=== PATIENT | female | born 1940 | race Caucasian/White ===

== ENCOUNTER → 2016-04-08 | Outpatient (CLI) | payer OTHER, BC ==
[~2016-04-08] MED LIST: ASPIRIN325 PO; CIPRO500 MG PO; DILAUDID 2 MG TA2 MG PO; DILAUDID 4 MG TA4 M1 PO; DOXYCYCLINE 10100 MG PO; FENTANYL 1100 MCG/HR TRANSDERM; FENTANYL PA25 MCG/HR TRANSDERM; FENTANYL PATCH75 MCG TRANSDERM; GENTAMICIN 0.1%15 G2 TOP; HYOSCYAMINE0.125 M1 SL; MERREM1 GM IV; MIRALAX17 GM PO; OMEPRAZOLE40 MG PO; PACERONE 200 M200 M1 PO; PROTONIX40 M1 PO; RESTORIL15 MG PO; SANTYL OINTMENT30 G1 TP; TEMAZEPAM15 MG PO; TENORMIN25 MG PO; TYLENOL325 MG PO; VITAMIN D 5050000 I1 PO; ZANAFLEX4 MG PO; ZOFRAN ODT4 MG BUCCAL
== END ==
LOC: HYPER 08:00
DX: L89.613 Pressure ulcer of right heel, stage 3 (principal); M86.371 Chronic multifocal osteomyelitis, right ankle and foot; G62.9 Polyneuropathy, unspecified; Z90.710 Acquired absence of both cervix and uterus; Z95.0 Presence of cardiac pacemaker; Z87.891 Personal history of nicotine dependence

== ENCOUNTER → 2016-06-24 | Outpatient (CLI) | payer OTHER, BC | LOC: HYPER 08:14 | DX: L89.613 Pressure ulcer of right heel, stage 3 (principal); L89.623 Pressure ulcer of left heel, stage 3; M86.371 Chronic multifocal osteomyelitis, right ankle and foot; G60.9 Hereditary and idiopathic neuropathy, unspecified; I73.9 Peripheral vascular disease, unspecified; I87.2 Venous insufficiency (chronic) (peripheral); I89.0 Lymphedema, not elsewhere classified; Z87.891 Personal history of nicotine dependence ==

== ENCOUNTER → 2016-07-22 | Outpatient (CLI) | payer OTHER, BC | LOC: HYPER 08:15 | DX: L89.613 Pressure ulcer of right heel, stage 3 (principal); L89.623 Pressure ulcer of left heel, stage 3; I87.2 Venous insufficiency (chronic) (peripheral); M86.371 Chronic multifocal osteomyelitis, right ankle and foot; G60.9 Hereditary and idiopathic neuropathy, unspecified; R60.0 Localized edema; I73.9 Peripheral vascular disease, unspecified; I89.0 Lymphedema, not elsewhere classified; Z95.0 Presence of cardiac pacemaker; Z87.891 Personal history of nicotine dependence ==

== ENCOUNTER → 2016-08-19 | Outpatient (CLI) | payer OTHER, BC | LOC: HYPER 10:11 | DX: L89.613 Pressure ulcer of right heel, stage 3 (principal); L89.623 Pressure ulcer of left heel, stage 3; I70.235 Atherosclerosis of native arteries of right leg with ulceration of other part of foot; I70.245 Atherosclerosis of native arteries of left leg with ulceration of other part of foot; I87.2 Venous insufficiency (chronic) (peripheral); M86.371 Chronic multifocal osteomyelitis, right ankle and foot; I73.9 Peripheral vascular disease, unspecified; R60.0 Localized edema; G60.9 Hereditary and idiopathic neuropathy, unspecified; Z87.891 Personal history of nicotine dependence ==

== ENCOUNTER → 2016-09-14 | Outpatient (CLI) | payer OTHER, BC | LOC: HYPER 07:00 | DX: I70.244 Atherosclerosis of native arteries of left leg with ulceration of heel and midfoot (principal); L89.623 Pressure ulcer of left heel, stage 3; I70.234 Atherosclerosis of native arteries of right leg with ulceration of heel and midfoot; L89.613 Pressure ulcer of right heel, stage 3; M86.371 Chronic multifocal osteomyelitis, right ankle and foot; G60.9 Hereditary and idiopathic neuropathy, unspecified; I73.9 Peripheral vascular disease, unspecified; I87.2 Venous insufficiency (chronic) (peripheral); Z90.710 Acquired absence of both cervix and uterus; Z87.891 Personal history of nicotine dependence ==

== ENCOUNTER → 2016-10-10 | Outpatient (CLI) | payer OTHER, BC | LOC: HYPER 06:57 | DX: I70.245 Atherosclerosis of native arteries of left leg with ulceration of other part of foot (principal); L89.893 Pressure ulcer of other site, stage 3; I70.235 Atherosclerosis of native arteries of right leg with ulceration of other part of foot; L89.613 Pressure ulcer of right heel, stage 3; L89.623 Pressure ulcer of left heel, stage 3; M86.371 Chronic multifocal osteomyelitis, right ankle and foot; G60.9 Hereditary and idiopathic neuropathy, unspecified; I73.9 Peripheral vascular disease, unspecified; I87.2 Venous insufficiency (chronic) (peripheral); I89.0 Lymphedema, not elsewhere classified; G89.29 Other chronic pain; R26.9 Unspecified abnormalities of gait and mobility; Z95.0 Presence of cardiac pacemaker; Z87.891 Personal history of nicotine dependence; Z90.710 Acquired absence of both cervix and uterus ==

== ENCOUNTER → 2016-11-07 | Outpatient (CLI) | payer OTHER, BC | LOC: HYPER 07:08 | DX: I87.2 Venous insufficiency (chronic) (peripheral) (principal); L97.411 Non-pressure chronic ulcer of right heel and midfoot limited to breakdown of skin; L97.521 Non-pressure chronic ulcer of other part of left foot limited to breakdown of skin; L89.613 Pressure ulcer of right heel, stage 3; M86.371 Chronic multifocal osteomyelitis, right ankle and foot; G60.9 Hereditary and idiopathic neuropathy, unspecified; R60.0 Localized edema; I73.9 Peripheral vascular disease, unspecified; I89.0 Lymphedema, not elsewhere classified; I70.235 Atherosclerosis of native arteries of right leg with ulceration of other part of foot; I70.245 Atherosclerosis of native arteries of left leg with ulceration of other part of foot; Z90.710 Acquired absence of both cervix and uterus; Z87.891 Personal history of nicotine dependence ==

== ENCOUNTER → 2016-12-02 | Outpatient (CLI) | payer OTHER, BC | LOC: HYPER 08:14 | DX: I70.235 Atherosclerosis of native arteries of right leg with ulceration of other part of foot (principal); L89.613 Pressure ulcer of right heel, stage 3; I70.245 Atherosclerosis of native arteries of left leg with ulceration of other part of foot; L89.623 Pressure ulcer of left heel, stage 3; M86.371 Chronic multifocal osteomyelitis, right ankle and foot; G60.9 Hereditary and idiopathic neuropathy, unspecified; I73.9 Peripheral vascular disease, unspecified; I87.2 Venous insufficiency (chronic) (peripheral); I89.0 Lymphedema, not elsewhere classified; Z87.891 Personal history of nicotine dependence ==

== ENCOUNTER → 2016-12-14 | Outpatient (CLI) | payer OTHER, BC | LOC: HYPER 07:03 | DX: I87.2 Venous insufficiency (chronic) (peripheral) (principal); I70.235 Atherosclerosis of native arteries of right leg with ulceration of other part of foot; L97.411 Non-pressure chronic ulcer of right heel and midfoot limited to breakdown of skin; L97.521 Non-pressure chronic ulcer of other part of left foot limited to breakdown of skin; L89.613 Pressure ulcer of right heel, stage 3; M86.371 Chronic multifocal osteomyelitis, right ankle and foot; G60.9 Hereditary and idiopathic neuropathy, unspecified; R60.0 Localized edema; I73.9 Peripheral vascular disease, unspecified; I89.0 Lymphedema, not elsewhere classified; Z90.710 Acquired absence of both cervix and uterus; Z95.0 Presence of cardiac pacemaker; Z87.891 Personal history of nicotine dependence ==

== ENCOUNTER → 2016-12-28 | Outpatient (CLI) | payer OTHER, BC | LOC: HYPER 07:03 | DX: L89.614 Pressure ulcer of right heel, stage 4 (principal); L89.893 Pressure ulcer of other site, stage 3; M86.371 Chronic multifocal osteomyelitis, right ankle and foot; G62.9 Polyneuropathy, unspecified; I87.2 Venous insufficiency (chronic) (peripheral); I89.0 Lymphedema, not elsewhere classified; I70.245 Atherosclerosis of native arteries of left leg with ulceration of other part of foot; I70.235 Atherosclerosis of native arteries of right leg with ulceration of other part of foot; L97.521 Non-pressure chronic ulcer of other part of left foot limited to breakdown of skin; L97.511 Non-pressure chronic ulcer of other part of right foot limited to breakdown of skin; Z90.710 Acquired absence of both cervix and uterus; Z95.0 Presence of cardiac pacemaker; Z87.891 Personal history of nicotine dependence ==

== ENCOUNTER → 2017-01-25 | Outpatient (CLI) | payer OTHER, BC | LOC: HYPER 01-16 06:59 | DX: I70.235 Atherosclerosis of native arteries of right leg with ulceration of other part of foot (principal); L89.613 Pressure ulcer of right heel, stage 3; I70.245 Atherosclerosis of native arteries of left leg with ulceration of other part of foot; L89.623 Pressure ulcer of left heel, stage 3; M86.371 Chronic multifocal osteomyelitis, right ankle and foot; G60.9 Hereditary and idiopathic neuropathy, unspecified; I89.0 Lymphedema, not elsewhere classified; Z87.891 Personal history of nicotine dependence ==

== ENCOUNTER → 2017-02-21 | Outpatient (CLI) | payer OTHER, BC | LOC: HYPER 07:07 | DX: I70.245 Atherosclerosis of native arteries of left leg with ulceration of other part of foot (principal); I70.235 Atherosclerosis of native arteries of right leg with ulceration of other part of foot; L89.613 Pressure ulcer of right heel, stage 3; L89.623 Pressure ulcer of left heel, stage 3; I87.2 Venous insufficiency (chronic) (peripheral); I89.0 Lymphedema, not elsewhere classified; G89.29 Other chronic pain; M86.371 Chronic multifocal osteomyelitis, right ankle and foot; G60.9 Hereditary and idiopathic neuropathy, unspecified; Z87.891 Personal history of nicotine dependence; Z90.710 Acquired absence of both cervix and uterus; Z95.0 Presence of cardiac pacemaker ==

== ENCOUNTER 2017-03-16 16:07 | Inpatient (IN) | payer OTHER, BC ==
[2017-03-16] VITALS (12 sets, daily range): BP systolic 96–120; BP diastolic 34–62
[~2017-03-16] VITALS: Ht 162.6 cm; Wt 56.7 kg
--- NOTE | ~2017-03-16 | S ---
[facility] [place] [address] SURGICAL PATH RPT PROCEDURE Name: DENISE LEMA Room #: 412-P ADM IN M.R.#: [id number] Admission: 03/16/17 Date of : 40 Discharge: Report #: [id number] Path Case #: [id number] PATHOLOGY REPORT COLLECTION DATE: 03/21/2017 RECEIVED DATE: 03/21/2017 SUBMITTING PHYS: Dr. Steven Leo OTHER PHYS: Dr. Gui Roe SPECIMEN(S) RECEIVED: A.Right below knee amputation * * * * * * * * * * * * FINAL DIAGNOSIS: Right below knee amputation: - Deep penetrating ulceration with necrotic acute inflammatory exudate with gangrenous necrosis and with acute inflammation extending into the underlying fibroadipose tissue and bone with acute and chronic osteomyelitis. - The vessels reveal atherosclerotic calcified narrowing with almost total occlusion. - The tissue submitted as soft tissue and bone margins appears to be viable. (SHA:anant; 03/23/2017) PATHOLOGIST: Albert Otto M.D. REPORT ELECTRONICALLY SIGNED BY: Albert Otto M.D. DATE/TIME: 03/23/2017 11:27 * * * * * * * * * * * * GROSS PATHOLOGY: Received wrapped in red biohazard bag, labeled "Denise Lema and right BKA", is a below the knee amputation of right leg 24 cm from the proximal skin resection margin to heel 23 cm from heel to tip of big toe. Extending above the soft tissue resection margin is a portion of tibia 5.0 cm in length by 3.5 x 2.2 cm and fibula 2.0 cm in length by 1.5 x 0.6 cm. The skin, underlying soft tissue and the bone resection margin grossly appear viable. The skin is smith-white diffusely edematous. There are several ulcers the largest on the plantar surface of heel 4.5 x 3.5 cm. The ulcer bed is necrotic guidry-white with possible extension to the underling bone. All the digits are present with a guidry-white crusted nail. The vasculature shows a patent lumen with possible minimal intimal thickening. No venous thrombi identified. Metal Handler sections submitted as follows: [address] [place] [address] SURGICAL PATH RPT PROCEDURE Name: DENISE LEMA Room #: [facility]- ADM IN M.R.#: [id number] Admission: 03/16/17 Date of : 40 Discharge: Report #: [id number] Path Case #: [id number] A1 soft tissue and vascular resection margin A2 bone resection margin (fibula and tibia) after decalcification A3 ulcer to underlying bone after decalcification A4 vasculature (SWS; 03/21/2017) CLINICAL HISTORY: Gangrenous right foot INITIAL CPT CODE(S): A; 38617, 77601 Professional services performed by [facility] at [facility] [address] [place] [address] Technical services performed by [facility] at [address] [place] [address] [address], [place] [address]. [facility] [address] [place] [address] PHONE: [phone] DIRECTOR: Pérez Guerin M.D. * * * END OF REPORT * * *
--- NOTE | ~2017-03-16 | H ---
[facility] [place] [address] HISTORY AND PHYSICAL Name: YADIRA LEMA Room #: 412-P [facility] IN M.R.#: [id number] Admission: 03/16/17 Attend Phys: Gui Sullivan MD Discharge: 03/29/17 Date of : 40 Report #: [id number] THIS REPORT FOR: //name// CC: Gui Xiaoricks DATE OF SERVICE: 03/16/2017 CHIEF COMPLAINT: Generalized weakness, right heel pain. HISTORY OF PRESENT ILLNESS: The patient is a 76-year-old female with chronic osteomyelitis of the right foot, involving heel, who came to the Emergency Room after she sustained a fall at home. The patient denies loss of consciousness. She states that she was just weak. The patient was found to have right distal fifth metacarpal fracture. Splint was applied in the Emergency Room. Further evaluation revealed deep right heel ulcer. The patient is followed by wound care clinic. Her white count is 30,000, and creatinine was 4.2. The patient is also hypotensive. She denies dizziness, chest pains, shortness of breath, or other symptoms. She reports right foot pain, and she is asking for pain medications. In the Emergency Room, the patient is started on vancomycin and Zosyn. I cannot clarify if the patient received any fluids or not. She is admitted to the floor. PAST MEDICAL HISTORY: 1. Chronic right heel ulcer and osteomyelitis, treated for the same problem here in October 2015. 2. Status post pacemaker placement. 3. Chronic pain syndrome, narcotic dependent. 4. Iron deficiency anemia. 5. Pulmonary hypertension, pulmonary artery pressure 70 based on echo in November of 2015. Normal left ventricular ejection fraction. 6. Peripheral neuropathy. 7. Gastroparesis. 8. GERD, status post Rachele fundoplication. HOME MEDICATIONS: Reviewed and documented in the patient's chart. FAMILY HISTORY: Reviewed and not pertinent to the patient's current condition. SOCIAL HISTORY: The patient lives in the assisted living facility. She does not smoke cigarettes and does not drink alcohol. [facility] [address] [place] [address] HISTORY AND PHYSICAL Name: YADIRA LEMA Room #: 412-P [facility] IN ..#: [id number] Admission: 03/16/17 Attend Phys: Gui Sullivan MD Discharge: 03/29/17 Date of : 40 Report #: [id number] REVIEW OF SYSTEMS: As above in HPI section, all others negative. PHYSICAL EXAMINATION: GENERAL: The patient is an elderly female, who is in mild distress due to ongoing pain. VITAL SIGNS: Blood pressure is 97/34, heart rate is 73, respiration is 16, and temperature is 98.4. HEENT: Pupils are equal. Eye movements are normal. Sclerae are anicteric. NECK: Supple. Oral mucosa is somewhat dry. Thyromegaly is not palpated. RESPIRATORY: Chest moves symmetrically with breathing. LUNGS: Clear to auscultation bilaterally. CARDIOVASCULAR: The patient has regular rhythm and rate. She has no murmurs, gallops or rubs. GASTROINTESTINAL: Abdomen is soft, nontender, and nondistended. Bowel sounds are present. Hepatomegaly or splenomegaly is not palpated. MUSCULOSKELETAL: The patient has mild edema on the right extremity. There is a large ulcer on the right foot, involving heel. The ulcer is fairly deep. The patient has bloody drainage from the ulcer. LABORATORY DATA: On basic metabolic profile, creatinine is 4.2, from 1.0 about a year ago. Electrolytes are normal. BUN is 79. Glucose is 142. AST is 45. Other liver function tests are normal. CBC: White count is 30,000, with 1% bands, and 90% segments. Hemoglobin is 7.4, which is lower than the patient's baseline. MCV is low at 71.6. Platelets are 320. Right foot x-ray is consistent with possible calcaneus osteomyelitis. Right hand x-ray shows distal fifth metacarpal fracture. Urinalysis is unremarkable. Blood culture and wound cultures obtained. ASSESSMENT AND PLAN: 1. Chronic right heel osteomyelitis, involving calcaneal bone. The patient already started on antibiotics in the Emergency Room. She received Zosyn and vancomycin, which will be continued. Wound care and Infectious disease specialist are already consulted. Input is very much appreciated. 2. Severe sepsis due to above. I cannot confirm if the patient received any IV fluids so far. We will treat the patient with a normal saline bolus, followed by continuous infusion. The patient will be transferred to the Intensive Care Unit, as her blood pressure currently is low at 97/34. IV pressors will be used if necessary. 3. Acute renal failure, with creatinine of 4.2 due to sepsis and septic shock. Avoid nephrotoxic agents. Continue IV fluids and reassess. Monitor I's and O's. Nephrology consultation. 4. Iron deficiency anemia, with low MCV. Hemoglobin is 7.4, from chronic baseline of between 8 and 9. Iron supplementation. Monitor hemoglobin. [address] [address] HISTORY AND PHYSICAL Name: YADIRA LEAM Room #: 412-P [facility] IN M.R.#: [id number] Admission: 03/16/17 Attend Phys: Gui Sullivan MD Discharge: 03/29/17 Date of : 40 Report #: [id number] 5. Deep venous thrombosis and gastrointestinal prophylaxis. Lovenox and PPI respectively. <ELECTRONICALLY SIGNED> By: Gui Sullivan MD 04/02/17 1105 1950 2057 Gui Sullivan MD /nt
--- NOTE | ~2017-03-16 | HC ---
[facility] [place] [address] CONSULTATION Name: YADIRA LEMA Room #: 412-P ADM IN M.R.#: [id number] Admission: 03/16/17 Attend Phys: Gui Sullivan MD Discharge: Date of : 40 Report #: [id number] THIS REPORT FOR: //name// CC: Gui Roe DATE OF SERVICE: 03/17/2017 NEPHROLOGY CONSULTATION REASON FOR CONSULTATION: Elevated creatinine. HISTORY OF PRESENT ILLNESS: The patient is known to our service from previous similar admissions. She is a chronic pain patient on high doses of narcotics with chronic osteomyelitis of the right heel, followed and treated with long-term ciprofloxacin. She fell and broke a bone in her right hand, has had difficulty working around, had numerous falls, became weaker and was admitted to the hospital with a creatinine level up from a creatinine of 1.0 a little more than a year ago and up to 4.2, now down to 3.6 with IV fluids overnight. PAST MEDICAL HISTORY: Chronic pain syndrome, on high doses of multiple narcotics on a chronic basis with multiple falls, as outlined above. She has the chronic right heel wound, a smaller wound on her left foot. She has had previous Rachele fundoplication, hemicolectomy, hysterectomy, chronic neuropathy and cholecystectomy. FAMILY HISTORY: Noncontributory. SOCIAL HISTORY: She was a smoker, but she quit. No substantial alcohol. Lives at home by herself. HOME MEDICATIONS: Include amiodarone 200 mg daily, Cipro 500 mg b.i.d., Cymbalta 30 mg daily, vitamin D, fentanyl 50 mcg patch every 2 days, Dilaudid tablets 2 different strengths and Protonix 40 mg daily. REVIEW OF SYSTEMS: GENERAL: She has been weak and dizzy. EYES: Her vision has been okay. ENT: Hearing okay. She swallows okay. She denies mouth ulcers. ENDOCRINE: No diabetes or thyroid disease. RESPIRATORY: Denies shortness of breath, pleuritic pain, cough or hemoptysis. CARDIAC: She has a pacemaker, but no chest pain, angina or history of heart failure. GASTROINTESTINAL: No nausea, vomiting, diarrhea or bloody stools. GENITOURINARY: Reasonably good urinary output. No dysuria or hematuria. No history of renal stone. [address] [address] CONSULTATION Name: YADIRA LEMA Room #: 412-P [facility] IN M.R.#: [id number] Admission: 03/16/17 Attend Phys: Gui Sullivan MD Discharge: Date of : 40 Report #: [id number] NEUROLOGIC: She has the peripheral neuropathy and some generalized weakness. PSYCHIATRIC: Obvious narcotic dependency. PHYSICAL EXAMINATION: GENERAL: This is a thin, chronically ill-appearing patient. SKIN: Unremarkable. SKELETAL: She is not obese. HEENT: Extraocular movements are full. Vision is intact. Hearing is intact. Mucous membranes are moist. Tongue and buccal mucosa are benign. NECK: Supple, without adenopathy. She appears to have a little bit of JVD. CHEST: Clear to auscultation. HEART: Regular. No murmurs, gallops or rubs are noted. ABDOMEN: Soft and nontender, without organomegaly. EXTREMITIES: Show the right leg is a bit swollen. She has got dressings over both heels. She has got a dressing over the right wrist and hand. LABORATORY DATA: Creatinine was 4.2, down to 3.6. Hemoglobin was 7.4, down to 6.2. She is receiving a transfusion. The platelets are 251.000. Sodium is 142, potassium 4.1, chloride 109, bicarbonate 25, BUN 76, creatinine 3.6 and calcium 8.6. Phosphorus 2.8. Albumin only 1.3. ASSESSMENT AND PLAN: 1. Elevated creatinine, volume depletion and low blood pressure are likely playing a large part. She has been on Cipro for 2 years, although this at any time can cause interstitial renal injury. She has also been on a proton pump inhibitor, which can cause interstitial injury. We will initiate treatment with aggressive IV fluids, rehydration and try and keep her blood pressure up to see what her renal function does. Her urine sodium was only 15 initially and this would suggest that she might recover nicely. She also has a little bit of a high urine protein, so there is some element of chronic kidney disease, again likely related to either the proton pump inhibitor or the chronic fluoroquinolone antibiotic and these will have to be re-addressed. Renal ultrasound has also been ordered. 2. Chronic pain syndrome with marked narcotic dependence. 3. Chronic osteomyelitis of the right heel. 4. Fracture of the right hand. 5. Pacemaker. 6. Anemia with unknown etiology. She has been given transfusions, but I believe that she did not have her irons checked before being given the blood and so this may complicate her analysis of the case. <ELECTRONICALLY SIGNED> By: Juancho Gallardo MD 03/29/17 1212 0828 1139 Juancho Gallardo MD /nt
--- NOTE | ~2017-03-16 | HC ---
[facility] [place] [address] CONSULTATION Name: YADIRA LEMA Room #: 242-P ADM IN M.R.#: [id number] Admission: 03/16/17 Attend Phys: Gui Sullivan MD Discharge: Date of : 40 Report #: [id number] THIS REPORT FOR: //name// CC: Gui Roe DATE OF SERVICE: 03/16/2017 REASON FOR CONSULTATION: I was asked to evaluate concerning sepsis and right foot infection. HISTORY OF PRESENT ILLNESS: The patient is a 76-year-old who presents to the Emergency Room from [facility] after she fell and fractured her right hand. She has been dealing with a chronic osteomyelitis to her right calcaneus. Reports being on ciprofloxacin for over 2 years. She has been treated by Dr. Uriel Whiting. She also sees Dr. Augustus Horn [facility]. She has had vascular studies, which she states showed open large vessels. This evening, she dropped her blood pressure. She has had no chest pain other than the discomfort she has had after her fall. She has some neck discomfort as well. Right hand remains in a splint and still painful. No nausea, vomiting or diarrhea. No cough or sputum production. No dysuria. Her right foot has been swollen with progression of her plantar heel wound and now swelling and ecchymosis involving the medial ankle. Denies any fever or chills. She has had no loss of consciousness. PAST MEDICAL HISTORY: Chronic heel wounds bilaterally. She has chronic right heel wound. She also has a chronic wound to the plantar aspect of her left foot. Iron deficiency anemia, constipation, IBS, fatty liver, hiatal hernia, permanent pacemaker, cardiomyopathy, chronic pain syndrome, small-bowel obstruction, several intestinal surgeries, herniorrhaphy, hysterectomy, colon surgery. ALLERGIES: IODINE CONTRAST. MEDICATIONS: As noted on her MAR including ciprofloxacin prior to admission, now has added vancomycin. FAMILY HISTORY: Noncontributory. SOCIAL HISTORY: She is a past smoker. No significant alcohol intake. REVIEW OF SYSTEMS: Noted above with no additions. PHYSICAL EXAMINATION: VITAL SIGNS: Afebrile, blood pressure 97/34, pulse was 73, oxygen saturation was normal on room air. [address] [address] CONSULTATION Name: YADIRA LEMA Room #: 242-[facility] IN M.R.#: [id number] Admission: 03/16/17 Attend Phys: Gui Sullivan MD Discharge: Date of : 40 Report #: [id number] GENERAL: She is alert and cooperative. She was thin. Weak. HEENT: Unremarkable. NECK: Supple. No adenopathy. EXTREMITIES: Right hand was in a splint. Good capillary refill. CHEST: Clear. HEART: Regular without appreciable murmur, gallop or rub. ABDOMEN: Soft, nontender, no hepatosplenomegaly or mass. EXTREMITIES: Right lower extremity large plantar hindfoot wound with palpable bone. She had swelling and fluctuance involving the medial aspect of her ankle. 2+ edema in the foot. Pulses in the right leg and foot were normal. She had a sensory neuropathy. Small plantar wound to the left foot. IMAGING: X-rays of the hand reveal mildly displaced fracture distal fifth metacarpal shaft and neck. Right ankle x-ray shows irregularity at the plantar and posterior margin of the calcaneus, suspicious for chronic osteomyelitis. Large soft tissue wound with gas present. Chest x-ray, no acute process. Hemoglobin 7.4, WBC 30, platelet count 320,000, 90% segs, 1% band. Sodium 141, potassium 4, bicarbonate 23, creatinine 4.2. Bilirubin normal, alkaline phosphatase 120, ALT 26, albumin 1.7. IMPRESSION: A 76-year-old with osteomyelitis of her right calcaneus with soft tissue infection extending up to her ankle. I suspect this is the source of her sepsis. She has marked leukocytosis and anemia. Also, has acute renal failure. She has underlying cardiomyopathy. Recommend blood cultures. Continue antibiotic coverage with vancomycin and Zosyn. Further imaging of her foot, but I suspect amputation may be required at this point in time. This was discussed with the patient and her family. May need to repeat her arterial studies if not done in the recent past. The patient was a bit unclear as to the timing. <ELECTRONICALLY SIGNED> By: Koffi Reyes MD 03/17/17 0943 51 0014 Koffi Reyes MD /nt
--- NOTE | ~2017-03-16 | HC ---
[facility] [place] [address] CONSULTATION Name: YADIRA LEMA Room #: 412-P [facility] IN M.R.#: [id number] Admission: 03/16/17 Attend Phys: Gui Sullivan MD Discharge: 03/29/17 Date of : 40 Report #: [id number] THIS REPORT FOR: //name// CC: Gui Sullivan Darrell Roe DATE OF SERVICE: 03/21/2017 HISTORY OF PRESENT ILLNESS: The patient is a 76-year-old female with right foot chronic osteomyelitis who developed gangrene. She was admitted with multiple falls. She apparently hit her head, although no loss of consciousness was noted. She was diagnosed with Staphylococcus bacteremia. She was followed by Orthopedics and with the gangrene she ended up undergoing a right below knee amputation on 03/21/2017. She has been followed with Nephrology involvement for acute renal insufficiency. She has been noted to have hypotension. She has chronic pain syndrome, which is premorbid. Also, with her falls she was complaining of right hand pain and an x-ray of her hand showed an acutely mildly displaced fracture of the distal fifth metacarpal shaft and neck. This was diagnosed per the x-ray on 03/16/2017. She currently has it wrapped in an Manolo wrap. We are seeing her in rehabilitation medicine consultation. PAST MEDICAL HISTORY: Includes the chronic right heel ulcer, history of pacemaker placement, chronic pain syndrome with narcotic dependence, iron deficiency anemia, pulmonary hypertension, peripheral neuropathy, gastroparesis, GERD, status post Rachele fundoplication. She has had a prior [address] [place] [address] inpatient rehabilitation stay back in 05/2015 for her idiopathic peripheral neuropathy. FAMILY HISTORY: Noncontributory. MEDICATIONS: Please see the full medication listing. SOCIAL HISTORY: Lives in a house alone. It is actually a king at [facility] where she utilized a walker. There are no steps. She does have an involved daughter. REVIEW OF SYSTEMS: Complains of pain involving her right hand, the below knee amputation and she has other chronic pain problems premorbidly. No chest pain, shortness of breath, abdominal discomfort. PHYSICAL EXAMINATION: GENERAL: A 76-year-old white female in no obvious distress. VITAL SIGNS: Last recorded temperature is 99, pulse 81, respirations 18, blood pressure 152/60. The patient is alert. HEENT: Appeared to be benign. NEUROLOGIC: Cranial nerves are grossly intact. She follows basic 1-step commands. She is of [place] [address] CONSULTATION Name: YADIRA LEMA Room #: 412-P [facility] IN [facility].#: [id number] Admission: 03/16/17 Attend Phys: Gui Sullivan MD Discharge: 03/29/17 Date of : 40 Report #: [id number] EXTREMITIES: Functional range of motion of the left upper extremity, strength is probably a grade 3+/5. Right upper extremity is wrapped. She does have some swelling of that thumb and her fingers. She does not move that right upper extremity as well with the discomfort with her hand fracture. Lower extremities: She has the right below knee amputation with the drain in place as she is just back from surgery earlier today. Left lower extremity, no focal calf swelling. She has the decreased distal sensation consistent with her premorbid peripheral neuropathy. Strength is probably a grade 3+/5. ASSESSMENT: A 76-year-old white female with the following problem list: 1. Right foot gangrene, now status post below knee amputation 03/21/2017. 2. Right distal fifth metacarpal acutely mildly displaced shaft and neck fracture. She currently has that right hand wrapped. 3. Staphylococcus bacteremia. 4. Acute renal insufficiency. 5. Hypotension. 6. Chronic pain syndrome. 7. Multiple falls prior to admission. 8. Chronic pain syndrome. PLAN: I question if she will have the tolerance for an acute in-hospital inpatient rehabilitation stay. Plus the combination with the below knee amputation and the considerable pain with the right hand fracture is going to be limiting her with attempted mobility. At this point, we will follow along with you regarding her rehab therapy needs. <ELECTRONICALLY SIGNED> By: Steven Rodriguez MD 04/03/17 1509 1520 [id number] Steven Rodriguez MD /[facility]
--- NOTE | ~2017-03-16 | O ---
[facility] [place] [address] OPERATIVE REPORT Name: YADIRA LEMA Room #: 412-P ADM IN M.R.#: [id number] Admission: 03/16/17 Attend Phys: Gui Sullivan MD Discharge: Date of : 40 Report #: [id number] THIS REPORT FOR: //name// CC: Gui Roe DATE OF SERVICE: 03/21/2017 PREOPERATIVE DIAGNOSES: 1. Gangrenous right foot. 2. Right fifth metacarpal fracture. POSTOPERATIVE DIAGNOSES: 1. Gangrenous right foot. 2. Right fifth metacarpal fracture. PROCEDURE: 1. Right below-knee amputation. 2. Dressing change and splint application, right hand fifth metacarpal fracture. SURGEON: Steven Leo MD INDICATIONS: This very frail 76-year-old female has a long history of infected right foot. She has clear evidence of chronic osteomyelitis involving the heel and a chronic open draining wound for many, many months. She has been unwilling to accept an amputation, but now she has more severe infection and sepsis and has agreed finally to go ahead with a below-knee amputation. I have explained she does have obvious soft tissue changes and vascular impairment throughout the leg and healing even at the below-knee level is questionable. Nevertheless, I think this is the most acceptable next option. She also has a displaced fifth metacarpal fracture of the right hand, which I think is best treated nonsurgically. We have elected to go ahead with a splint change and skin inspection under the same anesthetic. DESCRIPTION OF PROCEDURE: The patient was taken to the operating room where she was placed under general anesthesia. She was already on an antibiotic regimen. The right leg was meticulously prepped and draped and the foot was excluded in a watertight dressing. A thigh tourniquet was applied and inflated to 350 mmHg. A fish mouth shaped skin incision with a moderately long posterior skin flap was created. The incision was extended sharply through fascia and muscle to expose the tibia and fibula. These were transected at an appropriate level. The amputation was completed creating a satisfactory posterior flap. The neurovascular structures were identified and controlled with silk ties. The tourniquet was then deflated. Good hemostasis was established. A few small bleeders were cauterized. The muscle seems to be adequately perfused, although [address] [address] OPERATIVE REPORT Name: YADIRA LEMA Room #: 412-P ADM IN M.R.#: [id number] Admission: 03/16/17 Attend Phys: Gui Sullivan MD Discharge: Date of : 40 Report #: [id number] there are certainly no large brisk arterial bleeders noted. There is adequate perfusion in the subcutaneous tissues and along the skin edges. I feel there is a reasonably good potential for this level to heal. The bone was trimmed back slightly and the bone edges smoothed and rounded to avoid soft tissue compression. A single Hemovac was left in the wound exiting through a separate stab incision. The fascia was then closed with multiple 0 Vicryl sutures. The subcutaneous tissues were closed with 0 Monocryl. The skin was closed with skin micheline. A very well-padded splint was then applied holding the knee in neutral position and protecting the amputation site. Attention was then directed to the right wrist and hand. A previous splint had been placed in the emergency room. This was removed to allow skin inspection. The area of fracture was gently manipulated. I think the fifth metacarpal neck fracture is somewhat unstable, but is in acceptable alignment. She has fusion of the PIP joint in acceptable position, alignment seems to be satisfactory and the overlying skin is intact, I feel the best approach for this fracture is continued nonsurgical management. Adequate padding was applied and a fiberglass splint placed holding the wrist and hand and finger in neutral position. The patient was then awakened and returned to recovery room in good condition. <ELECTRONICALLY SIGNED> By: Steven Leo MD 03/28/17 0711 [id number] [id number] Steven Leo MD /nt
--- NOTE | ~2017-03-16 | HC ---
[facility] [place] [address] CONSULTATION Name: YADIRA LEMA Room #: 412-P ADM IN M.R.#: [id number] Admission: 03/16/17 Attend Phys: Gui Sullivan MD Discharge: Date of : 40 Report #: [id number] THIS REPORT FOR: //name// CC: Gui Roe DATE OF SERVICE: 03/22/2017 WOUND CARE CONSULTATION NOTE REASON FOR CONSULTATION: Chronic osteomyelitis of right calcaneus, status post right below-knee amputation on 03/21/2017, in the setting of severe protein-calorie malnutrition, debility, and right hand fracture. HISTORY OF PRESENT ILLNESS: The patient is a debilitated 76-year-old woman who was admitted to [facility] on March 16, with sepsis and a chronic open wound of the right heel with osteomyelitis of the calcaneus. The patient had fallen and fractured her right hand, this has been surgically treated and splinted. The patient has had chronic osteomyelitis of her right calcaneus, it had been suppressed with ciprofloxacin for 2 years. She has been seeing Dr. Augustus Horn in the wound care center, vascular studies have shown open large vessels of the leg adequate for healing. The patient has already undergone right below-knee amputation on March 21, due to progressive infection of the right foot with cellulitis and sepsis due to chronic osteomyelitis. She has a fresh Manolo dressing on the right below-knee amputation and our practice is to allow the orthopedic team to remove the dressing the first time after which we will follow the wound. PAST MEDICAL HISTORY: 1. Chronic debility and immobility. 2. Severe protein-calorie malnutrition. 3. Chronic osteomyelitis of the right calcaneus, now status post right below-knee amputation. 4. Iron-deficiency anemia. 5. Constipation. 6. Irritable bowel syndrome. 7. Cardiomyopathy with permanent pacemaker. 8. Chronic pain syndrome. PAST SURGICAL HISTORY: Hysterectomy, colon surgery, hernia repair, several intestinal surgeries, and pacemaker placement. ALLERGIES: IODINE CONTRAST. MEDICATIONS: See MAR. FAMILY HISTORY: Noncontributory. [facility] [address] [place] [address] CONSULTATION Name: YADIRA LEMA Room #: 412-P [facility] IN M.R.#: [id number] Admission: 03/16/17 Attend Phys: Gui Sullivan MD Discharge: Date of : 40 Report #: [id number] PHYSICAL EXAMINATION: GENERAL: Shows an elderly debilitated woman who is responsive, right hand and arm are in a splint. HEENT: Mucous membranes are moist. NECK: Mobile. LUNGS: Respirations are nonlabored. ABDOMEN: Soft. EXTREMITIES: Examination of the patient's lower extremities shows a dry pressure ulcer on the plantar aspect of the left foot with chronic callus formation, wound is dry without apparent open wound. Her right leg is status post right below-knee amputation, there is a fresh Kerlix and Manolo wrap, which is dry and the dressing is not removed. LABORATORY DATA: Severe protein-calorie malnutrition with albumin 1.1. IMPRESSION: 1. Severe protein-calorie malnutrition, albumin 1.1. 2. Right hand fracture with splint. 3. Chronic debility and immobility. 4. Chronic osteomyelitis, right foot with sepsis necessitating right below-knee amputation, now postoperative day #1. PLAN: We will place simple foam dressing to dry ulcer of the left foot for offloading, consider a foam boot. Right hand is splinted. We will allow the orthopedic team to remove the dressing on the right below-knee amputation first and then follow the wound with the orthopedic surgical team. Maximize nutrition. Wound care team will follow her. <ELECTRONICALLY SIGNED> By: Linden Rodriguez MD 03/23/17 1638 0723 1058 Linden Rodriguez MD /nt
--- NOTE | ~2017-03-16 | HC ---
[facility] [place] [address] CONSULTATION Name: YADIRA LEMA Room #: 412-P ADM IN M.R.#: [id number] Admission: 03/16/17 Attend Phys: Gui Sullivan MD Discharge: Date of : 40 Report #: [id number] THIS REPORT FOR: //name// CC: Gui Roe DATE OF SERVICE: 03/17/2017 CHIEF COMPLAINT: Infected gangrenous right foot. HISTORY OF PRESENT ILLNESS: This 76-year-old female has longstanding history of peripheral vascular disease and chronic wounds, principally on the right foot. I believe she was told 2 years ago that amputation was probably the best option. Since then she has refused that option and has continued with wound care, but without healing of a large open wound at the heel. Recently that wound has become more active with more purulent drainage and some loss of bony fragments consistent with progressive osteomyelitis. She also has broad deformity in the ankle, hindfoot and midfoot region with some superficial necrosis along the medial border of the foot consistent with progression of osteomyelitis and deformity there with changes consistent with a Charcot foot and progressive diffuse osteomyelitis. She has become septic with positive blood cultures, but at this point is hemodynamically stable. She states her level of discomfort is moderate. OBJECTIVE: There is a grossly open purulent wound involving most of the right heel. There is a dark eschar over the medial border of the mid foot and marked swelling throughout the ankle and mid foot consistent with chronic Charcot joint deformity and ongoing infection. She has mild brawny edema in the mid and lower leg, but these areas appear to be warmed and adequately perfused. She has some mild superficial skin change in the opposite left foot, but no large or significant open wounds on the left side. At this time, CT scan has been performed, but the images and report are not yet available. In summary, I have had a very lengthy discussion with the patient and her son. I have explained that it is very unlikely these wounds will ever heal and I expect will gradually become worse with more symptoms of sepsis. Given this, I think below knee amputation is the only reasonable viable option. She still seems reluctant to accept this and I have explained that she may elect to continue with antibiotic coverage and daily wound care, but I doubt that she will ever be able to effectively bear weight on the extremity and will probably have progressive gangrenous change and eventually distant infection. I think the patient and her son both understand this, but she still reluctant to consider a more definitive below knee amputation as treatment. I have explained that I am happy to follow along with her current treatment plan, but would not [address] [place] [address] CONSULTATION Name: YADIRA LEMA Room #: 412-P ADM IN M.R.#: [id number] Admission: 03/16/17 Attend Phys: Gui Sullivan MD Discharge: Date of : 40 Report #: [id number] expect to see much improvement. If at any point, she decides to go ahead with a more definitive below knee amputation, then we will see what scheduling is feasible at that point given the upcoming holiday weekend. Thank you for allowing me to participate in her care. <ELECTRONICALLY SIGNED> By: Steven Leo MD 03/18/17 1030 1218 20 Steven Leo MD /nt
[2017-03-16] MEDS ORDERED: CYMBALTA30 MG PO (16:33)
[2017-03-16] MEDS ORDERED: DURAGESIC1 EAC1 TRANSDERM (16:33)
[2017-03-16 16:53] LABS: HEMATOCRIT 24.1 % (37.0-47.0); HEMOGLOBIN 7.4 gm/dL (12.0-15.0); MCHC 30.8 g/dL (28.0-37.0); MCV 71.6 fL (80.0-100.0); PLATELET COUNT 320 thou/uL (150-400); RBC 3.37 mil/uL (4.20-5.00); WBC 30.1 thou/uL (4.0-11.0)
[2017-03-16 16:56] LABS: CALCIUM 9.3 mg/dL (8.5-10.1); CREATININE 4.2 mg/dL (0.6-1.0)
[2017-03-16 17:02] LABS: ALBUMIN 1.7 g/dL (3.4-5.0); DIRECT BILIRUBIN 0.2 mg/dL (<0.1-0.3); TOTAL BILIRUBIN 0.7 mg/dL (<0.1-1.0); TOTAL PROTEIN 6.5 g/dL (6.4-8.2)
[2017-03-16] MEDS ORDERED: CIPRO500 MG PO (17:06)
[2017-03-16 17:11] LABS: ABSOLUTE NEUTROPHILS 27.4 thou/uL (1.4-8.2)
[2017-03-16 17:12] LABS: ANISOCYTOSIS 1+; HYPOCHROMASIA 1+; MICROCYTES 2+; POLYCHROMASIA OCCASIONAL
[2017-03-16 22:55] LABS: PROT/CREAT RATIO 1.1; URINE CREATININE-RANDOM* 103.5 mg/dL; URINE PROTEIN-RANDOM* 118.5 mg/dL (<11.9)
[2017-03-17] VITALS (52 sets, daily range): BP systolic 87–134; BP diastolic 38–87
[2017-03-17 01:27] LABS: URINE BILIRUBIN NEGATIVE (Negative); URINE BLOOD TRACE (Negative); URINE CLARITY SL CLOUDY; URINE COLOR YELLOW; URINE GLUCOSE-RANDOM* NEGATIVE (Negative); URINE KETONES NEGATIVE (Negative); URINE LEUKOCYTES-REFLEX NEGATIVE (Negative); URINE NITRITE-REFLEX NEGATIVE (Negative); URINE PROTEIN (DIPSTICK) TRACE (Negative); URINE UROBILINOGEN 0.2 E.U./dl (0.2-1.0)
[2017-03-17 04:27] LABS: HEMATOCRIT 20.4 % (37.0-47.0); MCH 21.8 pg (26.0-34.0); MCHC 30.6 g/dL (28.0-37.0); MCV 71.3 fL (80.0-100.0); PLATELET COUNT 251 thou/uL (150-400); RBC 2.86 mil/uL (4.20-5.00); RDW 18.6 % (10.5-14.5); WBC 25.5 thou/uL (4.0-11.0)
[2017-03-17 04:38] LABS: HEMOGLOBIN 6.2 gm/dL (12.0-15.0)
[2017-03-17 04:48] LABS: ALBUMIN 1.3 g/dL (3.4-5.0); CALCIUM 8.6 mg/dL (8.5-10.1); CREATININE 3.6 mg/dL (0.6-1.0); PHOSPHORUS 2.8 mg/dL (2.5-4.9); POTASSIUM 4.1 mmol/L (3.5-5.1)
[2017-03-17 06:16] LABS: ABSOLUTE NEUTROPHILS 22.7 thou/uL (1.4-8.2)
[2017-03-17 06:17] LABS: ANISOCYTOSIS 2+; HYPOCHROMASIA 2+; MICROCYTES 1+; POLYCHROMASIA OCCASIONAL
[2017-03-17 13:54] LABS: HEMATOCRIT 22.3 % (37.0-47.0); HEMOGLOBIN 7.2 gm/dL (12.0-15.0)
[2017-03-18 04:00] VITALS: BP 134/59
[2017-03-18 05:55] LABS: HEMATOCRIT 21.9 % (37.0-47.0); HEMOGLOBIN 7.1 gm/dL (12.0-15.0); MCH 23.3 pg (26.0-34.0); MCHC 32.3 g/dL (28.0-37.0); MCV 72.2 fL (80.0-100.0); PLATELET COUNT 221 thou/uL (150-400); RBC 3.03 mil/uL (4.20-5.00); RDW 19.8 % (10.5-14.5); WBC 22.3 thou/uL (4.0-11.0)
[2017-03-18 06:08] LABS: ALBUMIN 1.2 g/dL (3.4-5.0); CALCIUM 8.1 mg/dL (8.5-10.1); PHOSPHORUS 2.6 mg/dL (2.5-4.9); POTASSIUM 3.7 mmol/L (3.5-5.1)
[2017-03-18 06:10] LABS: CREATININE 2.5 mg/dL (0.6-1.0)
[2017-03-18 06:33] LABS: ABSOLUTE NEUTROPHILS 19.4 thou/uL (1.4-8.2)
[2017-03-18 06:34] LABS: ANISOCYTOSIS 2+; HYPOCHROMASIA 1+; MICROCYTES 2+; POLYCHROMASIA SLIGHT
[2017-03-18 08:00] VITALS: BP 114/56
[2017-03-18 16:00] VITALS: BP 136/64
[2017-03-18 20:00] VITALS: BP 131/71
[2017-03-19 04:00] VITALS: BP 130/59
[2017-03-19 06:17] LABS: ALBUMIN 1.1 g/dL (3.4-5.0); CALCIUM 7.8 mg/dL (8.5-10.1); CREATININE 1.9 mg/dL (0.6-1.0); PHOSPHORUS 2.8 mg/dL (2.5-4.9); POTASSIUM 3.3 mmol/L (3.5-5.1)
[2017-03-19 09:04] VITALS: BP 147/58
[2017-03-19 16:19] VITALS: BP 134/57
[2017-03-19 21:30] VITALS: BP 126/58
[2017-03-20 06:23] VITALS: BP 128/60
[2017-03-20 08:09] LABS: HEMATOCRIT 22.7 % (37.0-47.0); HEMOGLOBIN 7.2 gm/dL (12.0-15.0); MCH 23.4 pg (26.0-34.0); MCHC 31.5 g/dL (28.0-37.0); MCV 74.2 fL (80.0-100.0); RBC 3.06 mil/uL (4.20-5.00); RDW 20.9 % (10.5-14.5); WBC 20.5 thou/uL (4.0-11.0)
[2017-03-20 08:23] LABS: ALBUMIN 1.1 g/dL (3.4-5.0); CALCIUM 7.7 mg/dL (8.5-10.1); CREATININE 1.5 mg/dL (0.6-1.0); POTASSIUM 4.1 mmol/L (3.5-5.1); TOTAL BILIRUBIN 0.3 mg/dL (<0.1-1.0); TOTAL PROTEIN 5.4 g/dL (6.4-8.2)
[2017-03-20 09:44] VITALS: BP 124/55
[2017-03-20 20:30] VITALS: BP 136/50
[2017-03-21] VITALS (8 sets, daily range): BP systolic 118–152; BP diastolic 54–69
[2017-03-21 05:34] LABS: HEMATOCRIT 23.6 % (37.0-47.0); HEMOGLOBIN 7.6 gm/dL (12.0-15.0); MCH 23.7 pg (26.0-34.0); MCHC 32.2 g/dL (28.0-37.0); MCV 73.7 fL (80.0-100.0); PLATELET COUNT 210 thou/uL (150-400); WBC 20.3 thou/uL (4.0-11.0)
[2017-03-21 05:56] LABS: ALBUMIN 1.2 g/dL (3.4-5.0); CREATININE 1.5 mg/dL (0.6-1.0); PHOSPHORUS 3.4 mg/dL (2.5-4.9); POTASSIUM 4.4 mmol/L (3.5-5.1)
[2017-03-21 07:26] LABS: ABSOLUTE NEUTROPHILS 17.5 thou/uL (1.4-8.2); ANISOCYTOSIS 2+; HYPOCHROMASIA 1+; METAMYELOCYTES 1 %; MICROCYTES 1+; MYELOCYTES 1 %
[2017-03-21 07:27] LABS: POLYCHROMASIA OCCASIONAL
[2017-03-22 03:58] VITALS: BP 122/51
[2017-03-22 06:24] LABS: RBC 2.77 mil/uL (4.20-5.00); WBC 21.7 thou/uL (4.0-11.0)
[2017-03-22 06:26] LABS: HEMATOCRIT 20.7 % (37.0-47.0); MCH 23.2 pg (26.0-34.0); MCHC 31.1 g/dL (28.0-37.0); MCV 74.8 fL (80.0-100.0); PLATELET COUNT 211 thou/uL (150-400); RDW 20.9 % (10.5-14.5)
[2017-03-22 06:28] LABS: HEMOGLOBIN 6.4 gm/dL (12.0-15.0)
[2017-03-22 06:36] LABS: CALCIUM 8.1 mg/dL (8.5-10.1); CREATININE 1.3 mg/dL (0.6-1.0); PHOSPHORUS 3.3 mg/dL (2.5-4.9); POTASSIUM 4.3 mmol/L (3.5-5.1)
[2017-03-22 07:18] LABS: ABSOLUTE NEUTROPHILS 19.3 thou/uL (1.4-8.2); METAMYELOCYTES 1 %; POLYCHROMASIA OCCASIONAL
[2017-03-22 07:19] LABS: ANISOCYTOSIS 2+; HYPOCHROMASIA 1+
[2017-03-22 08:31] VITALS: BP 139/52
[2017-03-22 11:11] VITALS: BP 117/53; BP 123/56
[2017-03-22 15:47] VITALS: BP 123/56
[2017-03-22 20:00] VITALS: BP 158/61
[2017-03-23 04:34] VITALS: BP 142/58
[2017-03-23 05:41] LABS: HEMATOCRIT 26.1 % (37.0-47.0); HEMOGLOBIN 8.1 gm/dL (12.0-15.0); MCH 24.2 pg (26.0-34.0); MCHC 31.1 g/dL (28.0-37.0); MCV 77.8 fL (80.0-100.0); PLATELET COUNT 236 thou/uL (150-400); RBC 3.35 mil/uL (4.20-5.00); RDW 21.3 % (10.5-14.5); WBC 23.1 thou/uL (4.0-11.0)
[2017-03-23 05:50] LABS: CALCIUM 8.1 mg/dL (8.5-10.1); CREATININE 1.1 mg/dL (0.6-1.0); POTASSIUM 4.5 mmol/L (3.5-5.1)
[2017-03-23 06:23] LABS: ABSOLUTE NEUTROPHILS 19.9 thou/uL (1.4-8.2); ANISOCYTOSIS 2+
[2017-03-23 06:24] LABS: LARGE PLATELETS OCCASIONAL; OVALOCYTES 1+; POIKILOCYTOSIS 1+; POLYCHROMASIA 1+; TARGET CELLS 1+
[2017-03-23 06:30] LABS: TOXIC GRANULATION 1+
[2017-03-23 08:54] VITALS: BP 141/53
[2017-03-23 16:00] VITALS: BP 148/51
[2017-03-23 20:00] VITALS: BP 148/63
[2017-03-24 04:20] VITALS: BP 158/65
[2017-03-24 05:25] LABS: HEMOGLOBIN 7.9 gm/dL (12.0-15.0); MCH 24.9 pg (26.0-34.0); MCHC 31.8 g/dL (28.0-37.0); MCV 78.3 fL (80.0-100.0); RBC 3.19 mil/uL (4.20-5.00); WBC 16.2 thou/uL (4.0-11.0)
[2017-03-24 05:36] LABS: CALCIUM 7.9 mg/dL (8.5-10.1); CREATININE 1.1 mg/dL (0.6-1.0); POTASSIUM 4.3 mmol/L (3.5-5.1)
[2017-03-24 06:37] LABS: ABSOLUTE NEUTROPHILS 14.7 thou/uL (1.4-8.2); ANISOCYTOSIS 2+; ATYPICAL LYMPHS 1 %; POLYCHROMASIA 1+
[2017-03-24 06:38] LABS: PLATELET COUNT 261 thou/uL (150-400)
[2017-03-24 08:00] VITALS: BP 162/69
[2017-03-24 16:00] VITALS: BP 153/65
[2017-03-24 20:28] VITALS: BP 149/62
[2017-03-25 04:12] VITALS: BP 154/55
[2017-03-25 07:34] VITALS: BP 139/52
[2017-03-25 07:39] LABS: HEMATOCRIT 25.7 % (37.0-47.0); HEMOGLOBIN 8.1 gm/dL (12.0-15.0); MCH 24.8 pg (26.0-34.0); MCHC 31.5 g/dL (28.0-37.0); MCV 78.7 fL (80.0-100.0); PLATELET COUNT 328 thou/uL (150-400); RBC 3.27 mil/uL (4.20-5.00); RDW 21.9 % (10.5-14.5); WBC 17.1 thou/uL (4.0-11.0)
[2017-03-25 07:47] LABS: CALCIUM 8.2 mg/dL (8.5-10.1); POTASSIUM 4.5 mmol/L (3.5-5.1)
[2017-03-25 10:32] LABS: ABSOLUTE NEUTROPHILS 14.9 thou/uL (1.4-8.2)
[2017-03-25 10:33] LABS: ANISOCYTOSIS 2+; POLYCHROMASIA OCCASIONAL
[2017-03-25 16:00] VITALS: BP 155/62
[2017-03-26 04:58] VITALS: BP 152/59
[2017-03-26 09:10] VITALS: BP 140/58
[2017-03-26 09:26] LABS: HEMATOCRIT 25.4 % (37.0-47.0); MCH 24.7 pg (26.0-34.0); MCHC 31.3 g/dL (28.0-37.0); MCV 78.9 fL (80.0-100.0); PLATELET COUNT 334 thou/uL (150-400); RBC 3.22 mil/uL (4.20-5.00); RDW 22.2 % (10.5-14.5); WBC 12.6 thou/uL (4.0-11.0)
[2017-03-26 11:10] LABS: CALCIUM 8.5 mg/dL (8.5-10.1); POTASSIUM 4.5 mmol/L (3.5-5.1)
[2017-03-26 11:36] LABS: ABSOLUTE NEUTROPHILS 10.7 thou/uL (1.4-8.2); ANISOCYTOSIS 3+; HYPOCHROMASIA 2+
[2017-03-26 11:37] LABS: POLYCHROMASIA OCCASIONAL
[2017-03-26 12:45] VITALS: BP 145/58
[2017-03-26 16:45] VITALS: BP 139/52
[2017-03-26 21:17] VITALS: BP 150/65
[2017-03-27 04:55] VITALS: BP 136/58
[2017-03-27 08:00] VITALS: BP 139/59
[2017-03-27 19:30] VITALS: BP 157/65
[2017-03-28 04:09] VITALS: BP 162/64
[2017-03-28 06:15] LABS: HEMATOCRIT 24.3 % (37.0-47.0); HEMOGLOBIN 7.9 gm/dL (12.0-15.0); MCH 25.7 pg (26.0-34.0); MCHC 32.6 g/dL (28.0-37.0); MCV 78.8 fL (80.0-100.0); PLATELET COUNT 339 thou/uL (150-400); RBC 3.09 mil/uL (4.20-5.00); RDW 22.2 % (10.5-14.5)
[2017-03-28 06:35] LABS: CALCIUM 8.6 mg/dL (8.5-10.1); CREATININE 0.8 mg/dL (0.6-1.0); POTASSIUM 4.4 mmol/L (3.5-5.1)
[2017-03-28] MEDS ORDERED: DILAUDID 2 MG TA2 MG PO (08:49)
[2017-03-28] MEDS ORDERED: DURAGESIC1 EAC3 TRANSDERM (08:50)
[2017-03-28 09:09] LABS: ABSOLUTE NEUTROPHILS 7.4 thou/uL (1.4-8.2); HYPOCHROMASIA 2+
[2017-03-28 09:10] LABS: ANISOCYTOSIS 2+
[2017-03-28 15:19] VITALS: BP 151/62
[2017-03-28 20:00] VITALS: BP 155/62
[2017-03-29 04:00] VITALS: BP 156/66
[2017-03-29 07:21] VITALS: BP 161/72
[2017-03-29 10:29] VITALS: BP 161/72
== END 2017-03-29 15:30 | DRG 853 ==
LOC: ER 16:07 → EROBS 18:16 → ICU 18:16 → 3W 18:44 → ICU 21:43 → 4N 03-17 16:51
PROVIDERS: Emergency Medicine; Family Medicine; Hospitalist; Internal Medicine Endocrinology, Diabetes & Metabolism; Internal Medicine Nephrology
PROC: 2W3EX1Z Immobilization of Right Hand using Splint (ICD-10-PCS; principal; 2017-03-16)
PROC: 05HB33Z Insertion of Infusion Device into Right Basilic Vein, Percutaneous Approach (ICD-10-PCS; 2017-03-17)
PROC: 2W0 Placement, Anatomical Regions, Change (ICD-10-PCS; 2017-03-21)
PROC: 0Y6H0Z1 Detachment at Right Lower Leg, High, Open Approach (ICD-10-PCS; 2017-03-21)
PROC: 30233N1 Transfusion of Nonautologous Red Blood Cells into Peripheral Vein, Percutaneous Approach (ICD-10-PCS; 2017-03-22)
DX: A41.02 Sepsis due to Methicillin resistant Staphylococcus aureus (principal); E43 Unspecified severe protein-calorie malnutrition; N17.9 Acute kidney failure, unspecified; I42.9 Cardiomyopathy, unspecified; M86.671 Other chronic osteomyelitis, right ankle and foot; F11.20 Opioid dependence, uncomplicated; E11.52 Type 2 diabetes mellitus with diabetic peripheral angiopathy with gangrene; R29.6 Repeated falls; D50.9 Iron deficiency anemia, unspecified; S62.326A Displaced fracture of shaft of fifth metacarpal bone, right hand, initial encounter for closed fracture; S62.336A Displaced fracture of neck of fifth metacarpal bone, right hand, initial encounter for closed fracture; F41.9 Anxiety disorder, unspecified; B95.62 Methicillin resistant Staphylococcus aureus infection as the cause of diseases classified elsewhere; N18.9 Chronic kidney disease, unspecified; I87.8 Other specified disorders of veins; E87.6 Hypokalemia; E11.621 Type 2 diabetes mellitus with foot ulcer; E11.42 Type 2 diabetes mellitus with diabetic polyneuropathy; E11.69 Type 2 diabetes mellitus with other specified complication; E11.43 Type 2 diabetes mellitus with diabetic autonomic (poly)neuropathy; L97.529 Non-pressure chronic ulcer of other part of left foot with unspecified severity; K31.84 Gastroparesis; G89.4 Chronic pain syndrome; I27.20 Pulmonary hypertension, unspecified; K21.9 Gastro-esophageal reflux disease without esophagitis; W18.00XA Striking against unspecified object with subsequent fall, initial encounter; Z90.49 Acquired absence of other specified parts of digestive tract; Z90.710 Acquired absence of both cervix and uterus; Z95.0 Presence of cardiac pacemaker; Z68.21 Body mass index [BMI] 21.0-21.9, adult; Z87.891 Personal history of nicotine dependence; Z79.899 Other long term (current) drug therapy; Z91.041 Radiographic dye allergy status; Y93.89 Activity, other specified; Y92.89 Other specified places as the place of occurrence of the external cause; Y99.8 Other external cause status; Z28.21 Immunization not carried out because of patient refusal; R65.20 Severe sepsis without septic shock
CPT/HCPCS: 10203; 10790; 27000; 50010; 50101; 50386; 51412; 51741; 53000; 56524; 56525; 56526; 57091; 62110; 62900; 70005

== ENCOUNTER → 2017-04-25 | Outpatient (CLI) | payer OTHER, BC ==
[~2017-04-25] MED LIST changes: +CYMBALTA30 MG PO; +DURAGESIC1 EAC1 TRANSDERM; +DURAGESIC1 EAC3 TRANSDERM
== END ==
LOC: CAT 08:08
DX: G31.89 Other specified degenerative diseases of nervous system (principal); I67.82 Cerebral ischemia; I63.9 Cerebral infarction, unspecified; N17.9 Acute kidney failure, unspecified; I48.0 Paroxysmal atrial fibrillation; I50.9 Heart failure, unspecified; I12.9 Hypertensive chronic kidney disease with stage 1 through stage 4 chronic kidney disease, or unspecified chronic kidney disease; N18.9 Chronic kidney disease, unspecified; Z90.710 Acquired absence of both cervix and uterus; Z87.891 Personal history of nicotine dependence